=== PATIENT | male | born 1950 | race Hispanic/Latino ===

== ENCOUNTER 2018-03-08 08:08 | Outpatient (CLI) | payer BC ==
--- NOTE | 2018-03-08 10:21 | ULT ---
ABDOMINAL ULTRASOUND: Date: 03/08/18 PROVIDED CLINICAL HISTORY: Liver cyst. FINDINGS: The visualized abdominal aorta, IVC, and pancreas appear unremarkable. There is increased echogenicit y of the hepatic parenchyma compatible with fatty infiltration. Cystic lesion involving the posterior aspect of the right hepatic lobe is redemonstrated, and appears not significantly changed with respe ct to the 04/22/15 examination. No evidence for solid mass or intrahepatic biliary ductal dilatation. The common duct is not dilated. The gallbladder is not visualized, compatible with provided clinical history of prior cholecystectomy. Kidneys demonstrate no evidence for hydronephrosis or mass. The spleen is not enlarged and demonstrat es no focal abnormality. IMPRESSION: Stable exam. POS: [facility]
== END 2018-03-08 08:09 | disposition home or self-care (01) ==
LOC: SCSULT 08:08
PROVIDERS: ATTEND Family Medicine
DX: K76.0 Fatty (change of) liver, not elsewhere classified (principal); K76.89 Other specified diseases of liver
CPT/HCPCS: 76700

== ENCOUNTER 2019-02-06 09:04 | Outpatient (CLI) | payer BC ==
--- NOTE | 2019-02-06 10:27 | ULT ---
SONOGRAM ABDOMEN COMPLETE: HISTORY: Liver cyst. Followup. COMPARISON: 03/08/2018. FINDINGS: The gallbladder is surgically absent. The common duct is 0.4 cm. The liver is homogeneous. Along t he posterior margin of the right liver lobe, a lobular slightly echogenic cyst is 4.3 cm x 3.7 cm gre atest diameters. No new liver mass is evident. No free fluid. The spleen, kidneys, and visualized portions of the abdominal aorta, IVC, and pancreas have a normal appearance. IMPRESSION: 1. Stable sonographic appearance of the slightly complex hepatic cyst. No new abnormalities. 2. Status post cholecystectomy. POS: [facility]
== END 2019-02-06 09:05 | disposition home or self-care (01) ==
LOC: SCSULT 09:04
PROVIDERS: ATTEND Family Medicine
DX: K76.0 Fatty (change of) liver, not elsewhere classified (principal); K76.89 Other specified diseases of liver; Z90.49 Acquired absence of other specified parts of digestive tract
CPT/HCPCS: 93975

== ENCOUNTER 2020-01-22 11:19 | Outpatient (CLI) | payer BC ==
--- NOTE | 2020-01-22 12:05 | ULT ---
GALLBLADDER ULTRASOUND: HISTORY:Fatty liver FINDINGS: The patient is post cholecystectomy. There are common bile duct measures 6 cm in diameter. There is fatty infiltration of the right lobe of the liver. A 4.8 x 3.5 x 3.2 cm cyst is seen in the right lobe of the liver. The right kidney is normal. The left lobe of the liver and pancreas are not satisfactorily visualized due to overlying bowel gas No free fluid is seen in the Sargent's pouch. IMPRESSION: Limited exam. Right liver lobe cyst. Fatty liver.
[2020-01-22 14:17] LABS: #Eosinphils 0.1 thou/uL (0.0-0.7); #Lymphocytes 1.4 thou/uL (1.20-3.40); #Monocytes 0.5 thou/uL (0.11-0.59); #Neutrophils 4.4 thou/uL (1.40-6.50); %Basophils 0.6 % (0.0-1.0); %Eosinophils 1.7 % (0.0-10.0); %Lymphocytes 21.9 % (21.0-51.0); %Monocytes 8.2 % (0.0-10.0); %Neutrophils 67.7 % (42.0-75.0); Hemoglobin 14.7 g/dL (14.0-18.0); Mean Corpuscular HGB CONC 30.7 g/dL (32.0-36.0); Mean Corpuscular Hemoglobin 29.2 pg (27.0-31.0); Mean Corpuscular Volume 95.1 fL (78.0-98.0); Mean Platelet Volume 11.7 fL (7.4-10.4); Platelet Count 153 thou/uL (130-400); RBC Distribution Width 12.5 % (11.5-14.5); Red Blood Cell (RBC) Count 5.03 mill/uL (4.70-6.10); White Blood Cell (WBC) Count 6.5 thou/uL (4.8-10.8)
[2020-01-22 14:21] LABS: Hemoglobin A1c 5.4 % (4.0-6.0)
[2020-01-22 14:31] LABS: ALT (SGPT) 23 U/L (8-55); AST (SGOT) 26 U/L (5-34); Albumin 4.4 g/dL (3.4-4.8); Alkaline Phosphatase 66 U/L (40-110); Anion Gap 10 mmol/L (10-20); BUN (Urea Nitrogen) 14 mg/dL (8.4-25.7); Bilirubin, Total 1.5 mg/dL (0.2-1.2); Calc. Creatinine Clearance 0 mL/min (70-130); Calcium 9.5 mg/dL (7.8-10.44); Carbon Dioxide 32 mmol/L (23-31); Cardiac Risk 3.6 (Less than 4.5); Chloride 102 mmol/L (98-107); Cholesterol 181 mg/dl (< 200 Desired); Estimated GFR-MDRD 75; Gamma GT (GGT) 36 U/L (12-64); Globulin 2.6 g/dL (2.4-3.5); Glucose 91 mg/dL (80-115); HDL Cholesterol 50 mg/dL (>60 Neg Risk); LDL Cholesterol, Calculated 111 mg/dL; Potassium 4.5 mmol/L (3.5-5.1); Sodium 139 mmol/L (136-145); Triglycerides 102 mg/dL (Less than 150)
[2020-01-22 14:47] LABS: Vitamin D, 25 Hydroxy 63.3 ng/ml (> 30.0)
== END 2020-01-22 11:20 | disposition home or self-care (01) ==
LOC: SCSRAD 11:19
PROVIDERS: ATTEND Family Medicine
DX: K76.0 Fatty (change of) liver, not elsewhere classified (principal); E78.1 Pure hyperglyceridemia; D51.9 Vitamin B12 deficiency anemia, unspecified; E55.9 Vitamin D deficiency, unspecified; K76.89 Other specified diseases of liver
CPT/HCPCS: 36415; 76705; 80053; 80061; 82306; 82607; 82977; 83036; 85025

== ENCOUNTER 2021-08-05 07:48 | Outpatient (CLI) | payer BC | END 2021-08-05 07:49 | disposition home or self-care (01) | LOC: SCSRAD 07:48 | PROVIDERS: ATTEND Family Medicine | DX: M79.671 Pain in right foot (principal) ==

== ENCOUNTER 2021-08-18 11:34 | Outpatient (CLI) | payer BC | END 2021-08-18 11:35 | disposition home or self-care (01) | LOC: MRI 11:34 | PROVIDERS: ATTEND Family Medicine | DX: M25.572 Pain in left ankle and joints of left foot (principal); M67.972 Unspecified disorder of synovium and tendon, left ankle and foot; S93.402D Sprain of unspecified ligament of left ankle, subsequent encounter ==